=== PATIENT | male | born 1975 | race Caucasian/White ===

== ENCOUNTER 2018-10-23 11:13 | Emergency (ER) | payer OTHER ==
[2018-10-23] MEDS ORDERED: Bupivacaine 0.5% 10 ML SDV INJECT ONE (11:47)
[2018-10-23] MEDS ORDERED: Diphtheria,Pertussis(Acell),Tetanus Vaccine 0.5 ML SDV IM ONE (11:58)
--- NOTE | 2018-10-23 12:04 | EDM.PDOC ---
ED HPI GENERAL MEDICAL PROBLEM - General Chief Complaint: Laceration Stated Complaint: RIGHT HAND CUT MIDDLE FINGER Time Seen by Provider: 10/23/18 11:30 Source of Information: Reports: Patient, Family - History of Present Illness INITIAL COMMENTS - FREE TEXT/NARRATIVE: Alert pleasant 43 yo right handed male present with right long finger injury. Patient was holding up a couch on a rope. The couch got away from him and the rope tangled around his long finger resulting in rope burn and laceration of the distal third digit long finger. - Related Data Allergies Allergy/AdvReac Type Severity Reaction Status Date / Time No Known Allergies Allergy Verified 10/23/18 11:38 Home Meds: Home Meds NK [No Known Home Meds] 10/23/18 [History] Past Medical History - Past Health History Medical/Surgical History: Denies Medical/Surgical History Social & Family History - Tobacco Use Smoking Status *Q: Current Every Day Smoker Years of Tobacco use: 2 Packs/Tins Daily: 1 ED ROS GENERAL - Review of Systems Review Of Systems: ROS reveals no pertinent complaints other than HPI. ED EXAM, SKIN/RASH Exam: See Below Exam Limited By: No Limitations General Appearance: Alert, WD/WN, No Apparent Distress Respiratory/Chest: No Respiratory Distress Cardiovascular: Normal Peripheral Pulses Extremities: Normal Inspection, Normal Range of Motion, No Pedal Edema, Normal Capillary Refill, Arm Pain Neurological: Alert, Oriented, CN II-XII Intact, Normal Cognition, Normal Gait, Normal Reflexes, No Motor/Sensory Deficits Psychiatric: Normal Affect, Normal Mood Skin: Warm, Dry Location, Skin: Upper Extremity, Right (distal fat pad of long finger laceration due to rope burn which extends into flexor subcutneous space at level of DIP joint. ) ED SKIN PROCEDURES - Laceration/Wound Repair Right Proximal Digit - 3rd (Middle) Lac/Wound length In cm: 2.7 (near circulfrential long finger laceration) Appearance: Subcutaneous Distal NVT: Neuro & Vascular Intact Anesthetic Type: Digital Local Anesthesia - Bupivicaine (Marcaine): 0.5% Plain Local Anesthetic Volume: 4cc Skin Prep: Chlorhexidine (Hibiciens), Saline Saline Irrigation (cc's): 150 Exploration/Debridement/Repair: Wound Explored, In a Bloodless Field, Explored to Base, Other (Finger cot was applied. No joint space or tendon exposure noted. ) Closed with: Sutures (5-0) Suture Size: other # of Sutures: 5 Suture Type: Prolene Sterile Dressing Applied: Nurse Tetanus Status Addressed: Yes (updated) Course - Vital Signs Last Recorded V/S: Last Vital Signs Temp 36.9 C 10/23/18 11:45 Pulse 83 10/23/18 11:45 Resp 14 10/23/18 11:45 BP 126/86 10/23/18 11:45 Pulse Ox 97 10/23/18 11:45 - Orders/Labs/Meds Orders: Active Orders 24 hr Category Date Time Status Vaccines to be Administered [RC] PER UNIT ROUTINE Care 10/23/18 11:58 Ordered Bacitracin [Bacitracin Oint 1 GM] Med 10/23/18 12:06 Once 1 dose TOP ONETIME ONE Medication Orders Bacitracin (Bacitracin Oint 1 Gm) 1 dose TOP ONETIME ONE Stop: 10/23/18 12:07 Meds: Medications Generic Name Dose Route Start Last Admin Trade Name Freq PRN Reason Stop Dose Admin Bacitracin 1 dose 10/23/18 12:06 Bacitracin Oint 1 Gm TOP 10/23/18 12:07 ONETIME ONE Discontinued Medications Generic Name Dose Route Start Last Admin Trade Name Freq PRN Reason Stop Dose Admin Bupivacaine HCl 10 ml 10/23/18 11:47 10/23/18 11:54 Sensorcaine-Mpf 0.5% INJECT 10/23/18 11:48 10 ml ONETIME ONE Administration Diphtheria/Tetanus/Acell Pertussis 0.5 ml 10/23/18 11:58 Adacel IM 10/23/18 11:59 .ONCE ONE Departure - Departure Time of Disposition: 12:38 Disposition: Home, Self-Care 01 Clinical Impression: Laceration of finger, right, Tetanus toxoid vaccination administered at current visit - Discharge Information Instructions: Wound Care, Adult, VIS, Tetanus, Diphtheria (Td); Tetanus, Diphtheria, Pertussis (Tdap) - CDC, Wound Check, Sutured Wound Care Referrals: PCP,None [Primary Care Provider] - 1 Week (Wound check in PCP in 3-5 days if infection concerns. Suture removal in 7-10 days. ) Forms: ED Department Discharge Additional Instructions: 1. Keep wound covered today. 2. Tomorrow remove bandage and cleanse with warm soapy water. 3. Apply bandage with topical antibiotic ointment. Keep clean dry and covered while at work. - Problem List & Annotations (1) Laceration of finger, right SNOMED Code(s): 279908524 Code(s): S61.219A - LACERATION W/O FB OF UNSP FINGER W/O DAMAGE TO NAIL, INIT Status: Acute Current Visit: Yes (2) Tetanus toxoid vaccination administered at current visit SNOMED Code(s): 937078096, 978940705 Code(s): Z23 - ENCOUNTER FOR IMMUNIZATION Status: Acute Current Visit: Yes - My Orders Last 24 Hours: My Active Orders 10/23/18 11:58 Vaccines to be Administered [RC] PER UNIT ROUTINE 10/23/18 12:06 Bacitracin [Bacitracin Oint 1 GM] 1 dose TOP ONETIME ONE - Assessment/Plan Last 24 Hours: My Active Orders 10/23/18 11:58 Vaccines to be Administered [RC] PER UNIT ROUTINE 10/23/18 12:06 Bacitracin [Bacitracin Oint 1 GM] 1 dose TOP ONETIME ONE
[2018-10-23] MEDS ORDERED: Bacitracin Oint 1 GM U/D Packet TOP ONE (12:06)
== END 2018-10-23 12:53 | disposition home or self-care (01) ==
LOC: JP.ED 11:13
DX: S61.212A Laceration without foreign body of right middle finger without damage to nail, initial encounter (principal); F17.210 Nicotine dependence, cigarettes, uncomplicated; Z23 Encounter for immunization; X50.9XXA Other and unspecified overexertion or strenuous movements or postures, initial encounter
CPT/HCPCS: 12002; 90471; 90715; 99282; J3490

== ENCOUNTER 2021-01-18 14:40 | Emergency (ER) | payer BC, OTHER ==
--- NOTE | 2021-01-18 15:11 | EDM.PDOC ---
ED HPI GENERAL MEDICAL PROBLEM - General Chief Complaint: General Stated Complaint: MEDICAL VIA [facility] Time Seen by Provider: 01/18/21 14:44 Source of Information: Reports: Patient, Family, RN Notes Reviewed History Limitations: Reports: Altered Mental Status - History of Present Illness INITIAL COMMENTS - FREE TEXT/NARRATIVE: 45-year-old gentleman presents emergency department today with complaint of altered mental status, he had been complaining of headache for the last 3 days did take some CBD chewing gum which he has used in the past after using this product contains concentrated amounts of THC became altered minimally responsive GCS of 13, and developed muscle twitching. Review of systems is limited by current state Headache Pain Score (Numeric/FACES): 2 - Related Data Allergies Allergy/AdvReac Type Severity Reaction Status Date / Time No Known Allergies Allergy Verified 10/23/18 11:38 Home Meds: Home Meds NK [No Known Home Meds] 10/23/18 [History] Past Medical History - Past Health History Medical/Surgical History: Denies Medical/Surgical History - Infectious Disease History Infectious Disease History: Reports: Chicken Pox Social & Family History - Tobacco Use Tobacco Use Status *Q: Never Tobacco User - Caffeine Use Caffeine Use: Reports: Coffee, Soda, Tea - Alcohol Use Days Per Week of Alcohol Use: 7 Number of Drinks Per Day: 4 Total Drinks Per Week: 28 Date of Last Drink: 01/17/21 - Recreational Drug Use Recreational Drug Use: Yes Recreational Drug Type: Reports: Other (see below) Other Recreational Drug Type: took one 5mg. gummie with thc ED ROS GENERAL - Review of Systems Review Of Systems: Unable To Obtain Reason Not Obtained: Altered mental status ED EXAM, GENERAL - Physical Exam Exam: See Below Exam Limited By: Altered Mental Status General Appearance: Alert, Other (GCS 13) Eye Exam: Bilateral Eye: EOMI, Normal Inspection, PERRL Respiratory/Chest: No Respiratory Distress, Lungs Clear, Normal Breath Sounds, No Accessory Muscle Use, Chest Non-Tender Cardiovascular: No Murmur, Tachycardia GI/Abdominal: Soft, Non-Tender Neurological: Alert, No Motor/Sensory Deficits, Inattentive, Slow to Respond. No: Normal Cognition Course - Vital Signs Last Recorded V/S: Last Vital Signs Temp 97.9 F 01/18/21 15:04 Pulse 126 H 01/18/21 15:04 Resp 16 01/18/21 15:04 BP 142/81 H 01/18/21 15:04 Pulse Ox 94 L 01/18/21 15:04 - Orders/Labs/Meds Labs: Laboratory Tests 01/18/21 01/18/21 01/18/21 Range/Units 15:18 15:18 15:18 WBC 9.5 (4.5-11.0) K/uL RBC 5.12 (4.30-5.90) M/uL Hgb 16.8 H (12.0-15.0) g/dL Hct 48.6 (40.0-54.0) % MCV 95 (80-98) fL MCH 33 H (27-31) pg MCHC 35 (32-36) % Plt Count 178 (150-400) K/uL Neut % (Auto) 82.0 H (36-66) % Lymph % (Auto) 9.4 L (24-44) % [place] % (Auto) 7.7 H (2-6) % Eos % (Auto) 0.6 L (2-4) % Baso % (Auto) 0.3 (0-1) % Sodium 134 L (140-148) mmol/L Potassium 4.1 (3.6-5.2) mmol/L Chloride 100 (100-108) mmol/L Carbon Dioxide 27 (21-32) mmol/L Anion Gap 11.1 (5.0-14.0) mmol/L BUN 10 (7-18) mg/dL Creatinine 1.1 (0.8-1.3) mg/dL Est Cr Clr Drug Dosing 88.48 mL/min Estimated GFR (MDRD) > 60 (>60) Glucose 190 H (74-106) mg/dL Lactic Acid (0.4-2.0) mmol/L Calcium 8.6 (8.5-10.1) mg/dL Total Bilirubin 0.4 (0.2-1.0) mg/dL AST 23 (15-37) U/L ALT 31 (12-78) U/L Alkaline Phosphatase 85 (46-116) U/L Ammonia < 10 L (11-32) umol/L Total Protein 6.9 (6.4-8.2) g/dL Albumin 3.6 (3.4-5.0) g/dL Globulin 3.3 (2.3-3.5) g/dL Albumin/Globulin Ratio 1.1 L (1.2-2.2) Urine Opiates Screen (NEGATIVE) Ur Oxycodone Screen (NEGATIVE) Urine Methadone Screen (NEGATIVE) Ur Propoxyphene Screen (NEGATIVE) Ur Barbiturates Screen (NEGATIVE) Ur Tricyclics Screen (NEGATIVE) Ur Phencyclidine Scrn (NEGATIVE) Ur Amphetamine Screen (NEGATIVE) U Methamphetamines Scrn (NEGATIVE) Urine MDMA Screen (NEGATIVE) U Benzodiazepines Scrn (NEGATIVE) U Cocaine Metab Screen (NEGATIVE) U Marijuana (THC) Screen (NEGATIVE) 01/18/21 01/18/21 Range/Units 15:18 16:45 WBC (4.5-11.0) K/uL RBC (4.30-5.90) M/uL Hgb (12.0-15.0) g/dL Hct (40.0-54.0) % MCV (80-98) fL MCH (27-31) pg MCHC (32-36) % Plt Count (150-400) K/uL Neut % (Auto) (36-66) % Lymph % (Auto) (24-44) % [place] % (Auto) (2-6) % Eos % (Auto) (2-4) % Baso % (Auto) (0-1) % Sodium (140-148) mmol/L Potassium (3.6-5.2) mmol/L Chloride (100-108) mmol/L Carbon Dioxide (21-32) mmol/L Anion Gap (5.0-14.0) mmol/L BUN (7-18) mg/dL Creatinine (0.8-1.3) mg/dL Est Cr Clr Drug Dosing mL/min Estimated GFR (MDRD) (>60) Glucose (74-106) mg/dL Lactic Acid 2.2 H (0.4-2.0) mmol/L Calcium (8.5-10.1) mg/dL Total Bilirubin (0.2-1.0) mg/dL AST (15-37) U/L ALT (12-78) U/L Alkaline Phosphatase (46-116) U/L Ammonia (11-32) umol/L Total Protein (6.4-8.2) g/dL Albumin (3.4-5.0) g/dL Globulin (2.3-3.5) g/dL Albumin/Globulin Ratio (1.2-2.2) Urine Opiates Screen Negative (NEGATIVE) Ur Oxycodone Screen Negative (NEGATIVE) Urine Methadone Screen Negative (NEGATIVE) Ur Propoxyphene Screen Negative (NEGATIVE) Ur Barbiturates Screen Negative (NEGATIVE) Ur Tricyclics Screen Negative (NEGATIVE) Ur Phencyclidine Scrn Negative (NEGATIVE) Ur Amphetamine Screen Negative (NEGATIVE) U Methamphetamines Scrn Negative (NEGATIVE) Urine MDMA Screen Negative (NEGATIVE) U Benzodiazepines Scrn Negative (NEGATIVE) U Cocaine Metab Screen Negative (NEGATIVE) U Marijuana (THC) Screen Presumptive positive H (NEGATIVE) Departure - Departure Time of Disposition: 17:02 Disposition: Home, Self-Care 01 Condition: Fair Clinical Impression: Tetrahydrocannabinol (THC) use disorder, mild, in early remission, abuse - Discharge Information Referrals: PCP,None [Primary Care Provider] - Forms: ED Department Discharge Additional Instructions: Recommend stop using products that contain THC, follow-up primary care as needed, call return to the emergency department worsening of symptoms Sepsis Event Note (ED) - Focused Exam Vital Signs: Vital Signs Temp Pulse Resp BP Pulse Ox 01/18/21 15:04 97.9 F 126 H 16 142/81 H 94 L 01/18/21 15:02 97.9 F 126 H 16 142/81 H 94 L - Assessment/Plan Plan: Assessment Acuity = acute Site and laterality = altered mental status Etiology = probably secondary to THC Manifestations = none Location of injury = Home Lab values = CBC, CMP unremarkable CT scan head shows no acute process urine direction positive for THC Plan After a couple hours his symptoms resolved he feels he is back to his baseline follow-up primary care as needed This note was dictated using [employer] Computer recognition software please call with any questions on syntax or grammar.
--- NOTE | 2021-01-18 16:09 | CRLCT ---
For Patients: As a result of the Century Cures Act, medical imaging exams and procedure reports are released immediately into your electronic medical record. You may view this report before your referring provider. If you have questions, please contact your health care provider. Indication: Acute mental status change Technique: Noncontrast head CT Comparison: No comparison Findings: Axial noncontrast images through the brain parenchyma demonstrates no acute intracranial hemorrhage or mass. No midline shift. No abnormal extra-axial air or fluid collections are seen. No acute osseous abnormalities. Mucosal thickening there ethmoid air cells minimal thickening of the frontal sinuses. Impression: No acute intracranial hemorrhage or mass. Please note that all CT scans at this facility use dose modulation, iterative reconstruction, and/or weight-based dosing when appropriate to reduce radiation dose to as low as reasonably achievable. Dictated by Clary Bass MD @ 01/18/2021 4:06:48 PM (Electronically Signed)
== END 2021-01-18 17:16 | disposition home or self-care (01) ==
LOC: JP.ED 14:40
DX: F12.11 Cannabis abuse, in remission (principal)
CPT/HCPCS: 36415; 70450; 80053; 80305-QW; 82140; 83605; 85025; 99285-25